=== PATIENT | male | born 1950 | race Caucasian/White ===

== ENCOUNTER 2017-02-20 10:30 | Day surgery (SDC) | payer MEDICARE, BC ==
[~2017-02-20 10:30] MED LIST: DEXAMETHASONE 20 MG/5 ML (4 MG/ML SOL) ONE; FENTANYL 100MCG/2ML SOL ONE; LIDOCAINE HCL 1% MPF SOL ONE; MIDAZOLAM 2 MG/2 ML SOL ONE; ONDANSETRON HCL 4 MG/2 ML SOL ONE; PROPOFOL 10 MG/ML EMU IV ONE
[2017-02-20] MEDS ORDERED: CEFAZOLIN SODIUM 1 GM PDS ONE (12:06)
[2017-02-20] MEDS ORDERED: METOCLOPRAMIDE HYDROCHLORIDE 5 MG/ML SOL ONE (12:06)
[2017-02-20] MEDS ORDERED: KETOROLAC TROMETHAMINE 30 MG/ML SOL ONE (12:56)
[2017-02-20 13:59] VITALS: BP 117/71; PULSE 72; RESP 16; TEMP 98.8; O2SAT 91
== END 2017-02-20 14:58 | disposition home or self-care (01) | DRG 563 ==
LOC: SURG 10:30
PROVIDERS: ATTEND Orthopaedic Surgery
DX: S83.232A Complex tear of medial meniscus, current injury, left knee, initial encounter (principal); E11.9 Type 2 diabetes mellitus without complications; M94.262 Chondromalacia, left knee
CPT/HCPCS: 82962; J0690; J1100; J1885; J2250; J2405; J2765; J3010; A6402; J2001; J2704